=== PATIENT | female | born 1950 | race Caucasian/White ===

== ENCOUNTER → 2017-01-31 | Outpatient (REF) | LOC: WSOH 15:14 | DX: Z02.89 Encounter for other administrative examinations (principal) ==

== ENCOUNTER → 2017-02-09 | Outpatient (CLI) | payer BC, MEDICARE | LOC: MC.RAD 11:00 | DX: Z12.31 Encounter for screening mammogram for malignant neoplasm of breast (principal) ==

== ENCOUNTER → 2018-03-08 | Outpatient (CLI) | payer BC | LOC: MC.RAD 09:36 | DX: Z12.31 Encounter for screening mammogram for malignant neoplasm of breast (principal); N63.10 Unspecified lump in the right breast, unspecified quadrant ==

== ENCOUNTER → 2018-03-14 | Outpatient (CLI) | payer BC | LOC: MC.RAD 13:27 | DX: N63.11 Unspecified lump in the right breast, upper outer quadrant (principal) | CPT/HCPCS: G0279 ==

== ENCOUNTER → 2018-03-21 | Outpatient (CLI) | payer BC | LOC: MC.RAD 06:50 | DX: N63.11 Unspecified lump in the right breast, upper outer quadrant (principal); Z98.82 Breast implant status ==

== ENCOUNTER 2018-04-02 06:54 | Observation (INO) | payer BC ==
[2018-04-02] VITALS (10 sets, daily range): BP systolic 113–148; BP diastolic 54–68; PULSE 83–91; TEMP 97.4–98.4
[~2018-04-02] VITALS: Ht 157.5 cm; Wt 73.4 kg
[~2018-04-02 06:54] MED LIST: AMBIEN 5MG TABLE5 MG PO; ATARAX 25MG25 MG/TAB PO; COZAAR 50MG50 MG/TAB PO; DITROPAN XL10 MG PO; EFFEXOR-XR150 MG PO; GLUCOPHAGE1000 MG PO; LEVEMIR100 U/ML SQ; NOVOLOG FLEX100 U/ML SQ; NYSTATIN CREAM15 GM TP; NYSTATIN POWDER30 GM TOP; SEPTRA DS 8001 TAB PO; XANAX .25M0.25 MG/TA PO; ZOCOR 20MG20 MG PO
[2018-04-02] MEDS ORDERED: NORCO 325 MG-51 TAB PO (16:08)
[2018-04-03 01:36] VITALS: BP 110/58; PULSE 86; TEMP 98.5
[2018-04-03 04:32] VITALS: BP 126/57; PULSE 87; TEMP 97.9
[2018-04-03 07:31] VITALS: BP 125/58; PULSE 88; TEMP 97.6
== END 2018-04-03 10:45 | disposition home or self-care (01) ==
LOC: SDCO 06:54 → SURG 16:42
DX: C50.411 Malignant neoplasm of upper-outer quadrant of right female breast (principal); Z17.0 Estrogen receptor positive status [ER+]; E11.9 Type 2 diabetes mellitus without complications; Z79.4 Long term (current) use of insulin; Z79.899 Other long term (current) drug therapy; I10 Essential (primary) hypertension; E78.5 Hyperlipidemia, unspecified; M85.80 Other specified disorders of bone density and structure, unspecified site; Z80.3 Family history of malignant neoplasm of breast; Z80.1 Family history of malignant neoplasm of trachea, bronchus and lung; Z80.0 Family history of malignant neoplasm of digestive organs
CPT/HCPCS: A9541; G0378; G0379; J0690; J1100; J1170; J1815; J2250; J2405; J2550; J2704; J2795; J3010; J7030; Q9968

== ENCOUNTER → 2018-05-08 | Outpatient (CLI) | payer BC ==
[~2018-05-08] MED LIST changes: +NORCO 325 MG-51 TAB PO
== END ==
LOC: ZCOL.LAB 17:08
DX: Z01.89 Encounter for other specified special examinations (principal)

== ENCOUNTER 2018-07-05 09:52 | Outpatient (RCR) | payer BC | END 2018-09-10 10:22 | disposition home or self-care (01) | LOC: MKS.ESL.PT 09:52 | DX: I89.0 Lymphedema, not elsewhere classified (principal); Z98.890 Other specified postprocedural states; Z92.3 Personal history of irradiation; I10 Essential (primary) hypertension; Z80.3 Family history of malignant neoplasm of breast; Z80.1 Family history of malignant neoplasm of trachea, bronchus and lung; Z80.8 Family history of malignant neoplasm of other organs or systems; Z87.891 Personal history of nicotine dependence; Z90.11 Acquired absence of right breast and nipple ==

== ENCOUNTER 2018-12-13 09:44 | Emergency (ER) | payer BC ==
[~2018-12-13] VITALS: Ht 157.5 cm; Wt 74.5 kg
[2018-12-13 09:52] VITALS: BP 149/78; PULSE 97; TEMP 97.6
[2018-12-13] MEDS ORDERED: ARIMIDEX1 MG PO (10:25)
[2018-12-13] MEDS ORDERED: NORCO 325 MG-51 TAB PO (11:50)
[2018-12-13] MEDS ORDERED: FLEXERIL 1010 MG/TAB PO (11:51)
[2018-12-13] MEDS ORDERED: LIDODERM 5% PATC1 EA TP (12:05)
== END 2018-12-13 12:26 | disposition home or self-care (01) ==
LOC: COL.ER 09:44
DX: S39.012A Strain of muscle, fascia and tendon of lower back, initial encounter (principal); S80.02XA Contusion of left knee, initial encounter; E78.5 Hyperlipidemia, unspecified; I10 Essential (primary) hypertension; E11.9 Type 2 diabetes mellitus without complications; Z79.4 Long term (current) use of insulin; Z87.891 Personal history of nicotine dependence; Z88.0 Allergy status to penicillin; W01.0XXA Fall on same level from slipping, tripping and stumbling without subsequent striking against object, initial encounter; Y92.009 Unspecified place in unspecified non-institutional (private) residence as the place of occurrence of the external cause
CPT/HCPCS: J1885

== ENCOUNTER → 2019-03-10 | Outpatient (CLI) | payer BC ==
[~2019-03-10] MED LIST changes: +ARIMIDEX1 MG PO; +FLEXERIL 1010 MG/TAB PO; +LIDODERM 5% PATC1 EA TP
== END ==
LOC: MC.RAD 12:48
DX: C50.411 Malignant neoplasm of upper-outer quadrant of right female breast (principal); I10 Essential (primary) hypertension; Z98.890 Other specified postprocedural states; Z92.3 Personal history of irradiation
CPT/HCPCS: G0279

== ENCOUNTER 2019-06-11 13:30 | Emergency (ER) | payer BC ==
[~2019-06-11] VITALS: Ht 157.5 cm; Wt 74.1 kg
[2019-06-11 13:35] VITALS: TEMP 96.1
[2019-06-11] MEDS ORDERED: FLEXERIL 1010 MG/TAB PO (15:24)
[2019-06-11] MEDS ORDERED: NORCO 325 MG-51 TAB PO (15:24)
[2019-06-11 15:30] VITALS: BP 135/78; PULSE 82
== END 2019-06-11 15:30 | disposition home or self-care (01) ==
LOC: COL.ER 13:30
DX: S00.531A Contusion of lip, initial encounter (principal); S80.02XA Contusion of left knee, initial encounter; S20.212A Contusion of left front wall of thorax, initial encounter; S20.211A Contusion of right front wall of thorax, initial encounter; S00.502A Unspecified superficial injury of oral cavity, initial encounter; E11.9 Type 2 diabetes mellitus without complications; Z79.4 Long term (current) use of insulin; W01.0XXA Fall on same level from slipping, tripping and stumbling without subsequent striking against object, initial encounter; Y92.481 Parking lot as the place of occurrence of the external cause
CPT/HCPCS: J1885

== ENCOUNTER → 2020-05-06 | Outpatient (CLI) | payer BC | LOC: MC.RAD 15:45 | DX: Z12.31 Encounter for screening mammogram for malignant neoplasm of breast (principal) ==

== ENCOUNTER 2023-05-31 10:56 | Emergency (ER) | payer BC ==
[~2023-05-31] VITALS: Ht 154.9 cm; Wt 60.9 kg
[2023-05-31 10:58] VITALS: TEMP 98.5
[2023-05-31] MEDS ORDERED: Dextrose 50% Water 25 GM/50 ML SYRINGE IV ONE (11:15)
[2023-05-31 11:18] LABS: BASO # 0.1 K/mm3 (0.0-0.2); BASO % 0.5 % (0.0-2.0); EOS # 0.2 K/mm3 (0.0-0.7); EOS % 1.5 % (0.0-4.0); GRAN # 9.9 K/mm3 (1.4-6.5); GRAN % 74.5 % (42.2-75.2); HEMOGLOBIN 11.8 g/dl (12.5-16.0); LYMPH % 14.9 % (20.0-51.0); MEAN CELL VOLUME 88 fl (80.0-100.0); MEAN CORPUSCULAR HEMOGLOBIN 30 pg (27-31); MEAN CORPUSCULAR HGB CONC 34 g/dl (33.0-37.0); MEAN PLATELET VOLUME 10.4 fl (7.4-10.4); MONO # 1.1 K/mm3 (0.1-0.6); MONO % 8.2 % (1.7-9.3); PLATELET COUNT 432 K/mm3 (130-400); RED BLOOD COUNT 3.98 M/mm3 (4.10-5.30); REDCELL DISTRIBUTION WIDTH-CV 13.7 % (11.5-14.5)
[2023-05-31 11:25] LABS: HEMATOCRIT 34.9 % (37.0-47.0)
[2023-05-31 11:34] LABS: ALBUMIN 3.8 gm/dL (3.4-4.8); BILIRUBIN,TOTAL 0.5 mg/dL (0.2-1.2); CALCIUM 9.6 mg/dL (8.4-10.2); CREATININE, serum 0.9 mg/dL (0.57-1.11); POTASSIUM 3.6 mmol/L (3.5-4.5)
[2023-05-31 13:05] VITALS: BP 121/62; PULSE 88
== END 2023-05-31 13:09 | disposition home or self-care (01) ==
LOC: COL.ER 10:56
PROVIDERS: Emergency Medicine
DX: E11.649 Type 2 diabetes mellitus with hypoglycemia without coma (principal)